=== PATIENT | male | born 1960 | race Caucasian/White ===

== ENCOUNTER 2019-09-24 18:29 | Emergency (ER) | payer BC ==
[~2019-09-24] VITALS: Ht 170.2 cm; Wt 113.6 kg
[2019-09-24 18:42] LABS: HEMATOCRIT 46.5 % (42.0-52.0); HEMOGLOBIN 14.4 g/dl (13.5-18.0); MEAN CELL VOLUME 94 fl (80.0-100.0); MEAN CORPUSCULAR HEMOGLOBIN 29 pg (27.0-31.0); MEAN CORPUSCULAR HGB CONC 31 g/dl (33.0-37.0); MEAN PLATELET VOLUME 10.4 fl (7.4-10.4); PLATELET COUNT 214 K/mm3 (130-400); RED BLOOD COUNT 4.95 M/mm3 (4.20-5.60); REDCELL DISTRIBUTION WIDTH-CV 12.6 % (11.5-14.5)
[2019-09-24 18:44] LABS: PROTHROMBIN TIME 11.2 SECONDS (9.7-12.8)
[2019-09-24 18:51] LABS: ALANINE AMINOTRANSFERASE 86 U/L (21-72); ALBUMIN 3.5 gm/dL (3.5-5.0); ALKALINE PHOSPHATASE 100 U/L (50-136); ANION GAP 23 mmol/L (7-16); AST,SGOT 115 U/L (15-37); BILIRUBIN,TOTAL 0.4 mg/dL (0.0-1.0); BLOOD UREA NITROGEN 18 mg/dL (9-20); CALCIUM 8.8 mg/dL (8.4-10.2); CHLORIDE 101 mmol/L (98-107); CREATINE KINASE 144 U/L (55-170); CREATININE, serum 2.09 (0.66-1.25); LIPASE 160 U/L (23-300); POTASSIUM 3.5 mmol/L (3.4-5.0); SODIUM 137 mmol/L (137-145); TOTAL PROTEIN 6.6 gm/dL (6.4-8.2)
[2019-09-24 19:07] LABS: EOSINOPHIL 3 % (0-4); LYMPHOCYTE 42 % (20.0-51.0); NEUTROPHILS 47 % (42.0-75.2)
[2019-09-24 19:08] LABS: ANISOCYTOSIS 1+; OVALOCYTES 1+; PLATELET ESTIMATE NORMAL (NORMAL); SPHEROCYTE 1+
[2019-09-24 19:09] LABS: ARTERIAL BLD GAS O2 SATURATION 97.6 % (92-100); ARTERIAL BLD GAS TCO2 CT 8.2; ARTERIAL BLOOD GAS HCO3 7.1 meq/L (22-26); ARTERIAL BLOOD GAS PCO2 36.1 mmHg (35-45); ARTERIAL BLOOD GAS PO2 161.1 mmHg (80-100); ARTERIAL BLOOD GAS pH 6.91 (7.35-7.45)
[2019-09-24 19:11] LABS: GLUCOSE 584 mg/dL (74-106)
[2019-09-24 19:12] LABS: ALCOHOL(ethanol),MEDICAL < 10 mg/dL; CARBON DIOXIDE 14 mmol/L (22-30); TROPONIN-I 0.082 ng/mL (0.000-0.035)
[2019-09-24 19:15] VITALS: PULSE 79
[2019-09-24 19:36] LABS: COLLECTION METHOD CATHETER
[2019-09-24 19:43] LABS: PH 7 (5-8); SQUAMOUS EPITHELIAL None Seen /hpf; URINE APPEARANCE Hazy; URINE BACTERIA Rare /hpf; URINE BILIRUBIN Negative (NEGATIVE); URINE BLOOD 2+ (NEGATIVE); URINE COLOR Yellow; URINE GLUCOSE 3+ (NEGATIVE); URINE KETONE Negative (NEGATIVE); URINE LEUKOCYTE ESTERASE Negative (NEGATIVE); URINE NITRATE Negative (NEGATIVE); URINE PROTEIN(semi-quant) 2+ (NEGATIVE); URINE RBC 20-50 /hpf; URINE UROBILINOGEN Negative (NEGATIVE)
[2019-09-24 19:55] VITALS: BP 79/32
[2019-09-24 20:00] VITALS: TEMP 96.2
[2019-09-24 20:01] LABS: TRICYCLIC ANTIDEPRESS URINE NEGATIVE
[2019-09-24 20:01] LABS: ACETONE,SERUM NEGATIVE
--- NOTE | 2019-09-25 00:12 | NUR ---
PT CAME INTO ED VIA EMS, FOR AMS, LOW TEMP AND BEING EXTERNALLY PACED. PT WAS INTUBATED AT [address] RONQUILLO, WITH AN 8.0 TUBE, INITIALLY 29 AT THE LIP WITH COLOR CHANGE ON THE COW DETECTOR, BILATERAL BREATH SOUNDS AND GOOD CHEST RISE. CXR CONFIRMED PROPER PLACEMENT BUT ETT NEEDING TO BE PULLED BACK 3 CM, PT IS NOW INTUBATED WITH AN 8.0 TUBE 26 AT THE LIP. PT WAS ON VENTILATOR INITIALLY WITH SETTINGS OF 480 FOR THE VT, PEEP OF 5, RR OF 16 AND FI02 OF 100%. AFTER BEING PLACED ON THE VENTILATOR ABG WAS DONE AND OBTAINED. UPON RESULTS OF ABG NOTHING WAS CHANGED. AT 1956 THIS RT WAS CALLED DUE TO PT IN TRAUMA 1 CODING. CAME IN AND WAS BAGGING PT COMPRESSIONS WERE BEING DONE. AT 2019 TIME OF WAS CALLED AND BAGGING OF THE PT WAS STOPPED. ET TUBE WAS LEFT IN THE PT WAS STILL IN THE TUBE [place]. VENTILATOR WAS TAKEN OUT OF ROOM.
== END 2019-09-24 20:20 | disposition expired ==
LOC: COL.ER 18:29
PROVIDERS: Emergency Medicine
DX: I46.9 Cardiac arrest, cause unspecified (principal); E87.2 Acidosis; T68.XXXA Hypothermia, initial encounter; R00.1 Bradycardia, unspecified; E11.65 Type 2 diabetes mellitus with hyperglycemia; Z89.611 Acquired absence of right leg above knee
CPT/HCPCS: J0171; J0330; J0461; J3010; J7060